=== PATIENT | male | born 1980 | race Caucasian/White ===

== ENCOUNTER 2017-07-18 22:03 | Emergency (ER) | payer SELFPAY ==
[2017-07-18 22:09] VITALS: BP 119/77; PULSE 68; TEMP 98.1
[2017-07-18 22:17] VITALS: RESP 18; O2SAT 96
[2017-07-18] MEDS ORDERED: Apap-Butalbital-Caffeine 325-50-40mg Tab PO STA (22:29)
[2017-07-18] MEDS ORDERED: Apap-Butalbital-Caffeine 325-50-40mg Tab ONE ×2 (22:32→22:36)
--- NOTE | 2017-07-18 22:54 | C.PDOC ---
History Of Present Illness 37 y/o male presents to ER with c/o of frontal headache intermittently x2 days. Pt denies photophobia, neck pain, trauma, vision changes, eye pain, vomiting or weakness. Pt took a percocet earlier with minimal relief. Time Seen by Provider: 07/18/17 22:16 Chief Complaint (Nursing): Headache History Per: Patient History/Exam Limitations: no limitations Current Symptoms Are (Timing): Still Present Severity: Moderate Quality: "Pain" Preceeding Symptoms: None Past Medical History Vital Signs: Last Vital Signs Temp 98.1 F 07/18/17 22:06 Pulse 68 07/18/17 22:06 Resp 18 07/18/17 22:06 BP 119/77 07/18/17 22:06 Pulse Ox 96 07/18/17 22:54 - Medical History PMH: Anxiety, Depression Denies: Diabetes, Hepatitis, HIV, HTN, Seizures - [facility] DRUG DETOXIFICATION (02/28/15) OTH & OPEN REPAIR INDIRECT INGUINAL HERNIA W GRFT OR PROSTH (09/21/14) Family History: States: Unknown Family Hx - Social History Hx Tobacco Use: Yes Hx Alcohol Use: Yes Hx Substance Use: Yes - Immunization History Hx Tetanus Toxoid Vaccination: Yes Hx Influenza Vaccination: No Hx Pneumococcal Vaccination: No Review Of Systems Constitutional: Negative for: Fever Eyes: Negative for: Pain, Vision Change Musculoskeletal: Negative for: Neck Pain Neurological: Negative for: Weakness, Numbness, Headache, Dizziness Physical Exam - Physical Exam Appears: Well, Non-toxic, No Acute Distress Skin: Normal Color Head: Atraumatic Eye(s): bilateral: Normal Inspection, EOMI Oral Mucosa: Moist Throat: Normal Neck: Normal ROM, No Midline Cervical Tenderness, Supple Extremity: Normal ROM Neurological/Psych: Oriented x3, Normal Speech, Normal Cognition Gait: Steady ED Course And Treatment O2 Sat by Pulse Oximetry: 96 Pulse Ox Interpretation: Normal Progress Note: Fioricet PO ordered. 15 mns after meds , pt states he was feeling better and requested an excuse from work letter for tomorrow. Pt requests to be discharged. Pt remains stable, playing on his phone, no neuro deficits. Pt advised to f/u in clinic and return precautions d/w pt who expressed understanding of all instructions. Reassessment Condition: Improved Disposition - Disposition Referrals: [facility] [Outside] Disposition: HOME/ ROUTINE Disposition Time: 22:52 Condition: STABLE Additional Instructions: Take meds as directed Follow up in clinic Drink plenty of fluids Return to ER if worse Prescriptions: Acetaminophen/Butalbital/Caf [Fioricet] 1 tab PO TID PRN #20 tab PRN Reason: Headache Instructions: Migraine Headache (ED) Forms: [facility] (Austrian), Work Excuse - Clinical Impression Clinical Impression: Headache, Migraine
== END 2017-07-18 22:57 | disposition home or self-care (01) ==
LOC: C.ER 22:03 → SUPCPDRO 22:03 → C.ER 22:57
DX: G43.909 Migraine, unspecified, not intractable, without status migrainosus (principal)